=== PATIENT | male | born 1950 | race Caucasian/White ===

== ENCOUNTER → 2018-01-09 | Emergency (ER) | payer OTHER ==
[~2018-01-09] VITALS: Ht 170.2 cm; Wt 68.2 kg
[~2018-01-09] MED LIST: ASPIRIN 81M81 MG/TA2 PO; BACTRIM DS 8001 TAB PO; BENICAR40 MG PO; CEPHALEXIN500 M1 PO; COZAAR 25MG25 MG/TAB PO; HYZAAR 25 MG-101 TAB PO; LIPITOR 10MG10 MG PO; LORTAB 5/500 501 TAB PO; MOTRIN IB200 MG PO; NIASPAN 500MG500 MG PO; NICODERM C21 MG/PATC TOP; PERCOCET 325 MG1 TA2 PO; PLAVIX 75MG TAB75 MG PO; TYLENOL W/COD1 UDTAB PO; ZEBETA 5MG5 MG PO; ZOCOR5 MG PO
[2018-01-09 08:46] LABS: ALBUMIN 2.9 gm/dL (3.5-5.0); BILIRUBIN,TOTAL 0.4 mg/dL (0.0-1.0); CALCIUM 8.4 mg/dL (8.4-10.2); CREATININE, serum 1.15 mg/dL (0.66-1.25); POTASSIUM 3.1 mmol/L (3.4-5.0); TOTAL PROTEIN 5.7 gm/dL (6.4-8.2)
[2018-01-09 08:48] LABS: BASO # 0.1 (0.0-0.2); BASO % 0.7 % (0.0-2.0); EOS # 0.2 (0.0-0.7); EOS % 1.6 % (0-4.0); GRAN # 7.3 (1.4-6.5); GRAN % 65.4 % (42.2-75.2); HEMATOCRIT 37.2 % (42.0-52.0); HEMOGLOBIN 12.7 g/dl (13.5-18.0); LYMPH # 2.7 (1.2-3.4); LYMPH % 24.3 % (20.0-51.0); MEAN CELL VOLUME 96 fl (80.0-100.0); MEAN CORPUSCULAR HEMOGLOBIN 33 pg (27.0-31.0); MEAN CORPUSCULAR HGB CONC 34 g/dl (33.0-37.0); MEAN PLATELET VOLUME 10.1 fl (7.4-10.4); MONO # 0.8 (0.1-0.6); MONO % 7.4 % (1.7-9.3); PLATELET COUNT 202 K/mm3 (130-400); RED BLOOD COUNT 3.86 M/mm3 (4.20-5.60); REDCELL DISTRIBUTION WIDTH-CV 12.9 % (11.5-14.5)
[2018-01-09 08:51] LABS: PROTHROMBIN TIME 11.1 SECONDS (9.7-12.8)
[2018-01-09 08:53] LABS: PARTIAL THROMBOPLASTIN TIME 26.4 SECONDS (26.0-37.0)
[2018-01-09 08:59] LABS: TROPONIN-I 0.06 ng/mL (0.000-0.034)
[2018-01-09 10:00] VITALS: BP 100/74; PULSE 120
[2018-01-09 10:05] VITALS: TEMP 91.9
== END ==
LOC: COL.ER 08:25
PROVIDERS: Emergency Medicine
DX: I72.3 Aneurysm of iliac artery (principal); I21.3 ST elevation (STEMI) myocardial infarction of unspecified site; I10 Essential (primary) hypertension; J44.9 Chronic obstructive pulmonary disease, unspecified; E78.5 Hyperlipidemia, unspecified; F17.210 Nicotine dependence, cigarettes, uncomplicated; Z86.73 Personal history of transient ischemic attack (TIA), and cerebral infarction without residual deficits
CPT/HCPCS: A4314; J0330; J0461; J2250; J3010; J7030; J7060; P9016; Q9967